=== PATIENT | female | born 2000 | race Caucasian/White ===

== ENCOUNTER 2018-03-27 18:09 | Emergency (ER) | payer BC ==
--- NOTE | 2018-03-27 19:34 | EDPHY ---
HPI/HX/ROS/PE/MDM Narrative: CHIEF COMPLAINT: "I think I might have serotonin syndrome" HISTORY OF PRESENT ILLNESS: This patient is a 17 year old female complaining of fatigue, muscle tightness, and twitching. She has been taking escitalopram 10mg QD for the past month and is concerned as she received warnings about serotonin syndrome when she started this medication. This morning she woke feeling fatigued and was shaking. She had a near syncopal episode while walking home from class today. She endorses weakness and feels uncoordinated. She also had a sensation of general muscle tenseness. No vomiting or diarrhea. She was evaluated at [facility] student clinic earlier and referred to the ED for further evaluation. The patient notes she took Focalin (10mg) on Tuesday recreationally in addition to alcohol and "dabs" that evening as well. She endorses additional marijuana use yesterday. She denies recent international travel. No cold or flu symptoms. No known ill contacts. No fever, chills, chest pain, palpitations, vomiting, diarrhea, urinary complaints, headache. REVIEW OF SYSTEMS: A comprehensive 10 system review of systems is otherwise negative aside from elements mentioned in the history of present illness and medical decision making. PAST MEDICAL HISTORY: TMJ. Occasional hypotension. SOCIAL HISTORY: Student at [employer]. Friend at bedside. VITAL SIGNS: Reviewed by me. Afebrile GENERAL: Well-developed, well-nourished, resting comfortably in no respiratory distress. HEENT: Atraumatic. Eyes: No icterus, no injection. Mouth: moist mucous membranes. No erythema or lesions. Neck: supple with no adenopathy. LUNGS: Clear to auscultation bilaterally, no wheezes, rhonchi or rales. CARDIAC: Regular rate and rhythm, no rubs, murmurs or gallops. ABDOMEN: Soft, nontender, nondistended, bowel sounds normal. BACK: No CVA tenderness. EXTREMITIES: No trauma. No edema. Range of motion is normal throughout. NEURO: Alert and oriented. No clonus, no lead pipe rigidity. Brisk reflexes. Otherwise nonfocal neurologic exam. SKIN: Warm and dry, no rash. PSYCHIATRIC: Normal mentation, no agitation. Portions of this note were transcribed by a medical diagnostic radiographer. I personally performed a history, physical exam, medical decision making, and confirmed accuracy of information the transcribed note. ED Course: 17 y/o female presents with concern for serotonin syndrome. She is well- appearing on exam, She is afebrile. No tachycardia, no tachypnea, she is not hypertensive. No clonus, no lead pipe rigidity, and brisk reflexes on exam. I have very low suspicion for serotonin syndrome a this time. Plan for EKG, labs including CBC, chemistries, BHCG. 12-LEAD EKG: Please see the full report in [facility]. My interpretation: Normal sinus rhythm, rate 60. Laboratory studies largely unremarkable. BHCG negative. 20:25 Reassessed patient. She is currently feeling better. She states she felt tremulous earlier this afternoon, but upon further discussion, believes this may be related to anxiety. She is comfortable with discharge home. The patient has not yet received her full liter of fluid - following completion of this, plan to discharge home in good condition. Follow up and return precautions discussed. She is comfortable with this plan. She remains well-appearing and afebrile, vitals are within normal limits. MDM: Diff dx considered included anxiety, dehydration, polysubstance abuse, electrolyte abnormalities, medication side effect. - Data Points Laboratory Results: Laboratory Results 03/27/18 19:27 03/27/18 19:28 Medications Given: Discontinued Medications Sodium Chloride (Ns) 1,000 mls @ 0 mls/hr IV ONCE ONE; Wide Open PRN Reason: Protocol Stop: 03/27/18 20:27 Last Admin: 03/27/18 20:29 Dose: 1,000 mls General Time Seen by Provider: 03/27/18 19:14 Initial Vital Signs: Initial Vital Signs Temperature (C) 36.8 C 03/27/18 18:12 Heart Rate 79 03/27/18 18:12 Respiratory Rate 19 03/27/18 18:12 Blood Pressure 108/80 03/27/18 18:12 O2 Sat (%) 95 03/27/18 18:12 O2 Delivery Mode Room Air Allergies/Adverse Reactions: No Known Allergies Allergy (Unverified 03/29/18 17:12) Home Medications: Medication Instructions Recorded Escitalopram Oxalate 03/27/18 Departure - Departure Disposition: Home, Routine, Self-Care Clinical Impression: Twitching, Anxiety Condition: Good Instructions: Anxiety (ED) Additional Instructions: Follow up with your primary care provider. Please continue taking medications as directed. Please do not take other individuals medications or mix alcohol and marijuana with your escitalopram Return to the emergency department for fever, chest pain, shortness of breath, fainting, or other worsening of condition. Referrals: [facility],. [Clinic] - As per Instructions Report Scribed for: Nancy Brandon Report Scribed by: Alena Mcclain Date of Report: 03/27/18 Time of Report: 19:36
[2018-03-27 19:53] LABS: PLATELET COUNT 257 10^3/uL (150-400)
[2018-03-27] MEDS ORDERED: NS 1,000 ML IV ONE (20:26)
[2018-03-27 21:53] VITALS: BP 118/69
== END 2018-03-27 21:52 | disposition home or self-care (01) ==
DX: F41.9 Anxiety disorder, unspecified (principal); R25.3 Fasciculation

== ENCOUNTER 2018-03-29 17:11 | Emergency (ER) | payer BC ==
--- NOTE | 2018-03-29 18:05 | EDPHY ---
H & P Time Seen by Provider: 03/29/18 17:54 HPI/ROS: Chief complaint. Bloody stool HPI. Patient is a 17-year-old female with lightheadedness in the shower this afternoon approximately 1 cm. The she knows this is not unusual. The she then subsequently had a brick red stool that she thinks is blood. There was no blood and Dilaudid. She has had occasional abdominal pain the past few weeks. No nausea vomiting. No fever. No history of passing blood in his stool previously. There is no family history of ulcerative colitis or Crohn's disease. ROS 10 systems were reviewed and negative with the exception of the elements mentioned in the history of present illness Past Medical/Surgical History: Past medical history significant for TMJ and mood disorder Social History: Single, nonsmoker, no alcohol Smoking Status: Never smoked Physical Exam: General Appearance: Alert well-developed female mild distress vital signs are stable Eyes: Pupils equal and round no pallor or injection. ENT, Mouth: Mucous membranes are moist. Respiratory: There are no retractions, lungs are clear to auscultation. Cardiovascular: Regular rate and rhythm. Gastrointestinal: Abdomen is soft and nontender, no masses, bowel sounds normal. Rectal exam shows brown stool Neurological: Awake and alert, sensory and motor exams grossly normal. Skin: Warm and dry, no rashes. Musculoskeletal: Neck is supple nontender. Extremities symmetrical, full range of motion. Psychiatric: Patient is oriented X 3, there is no agitation. Constitutional: Initial Vital Signs Temperature (C) 36.8 C 03/29/18 17:13 Heart Rate 76 03/29/18 17:13 Respiratory Rate 18 03/29/18 17:13 Blood Pressure 109/72 03/29/18 17:13 O2 Sat (%) 96 03/29/18 17:13 O2 Delivery Mode Room Air Allergies/Adverse Reactions: No Known Allergies Allergy (Unverified 03/29/18 17:12) Home Medications: Medication Instructions Recorded Escitalopram Oxalate 03/27/18 Medical Decision Making Procedures: IV normal saline ED Course/Re-evaluation: Re-evaluation at 7:40 p.m.. Patient is stable. She and I discussed lab results , treatment plan including criteria for return importance of follow-up and further evaluation. She expresses understanding and agreement Differential Diagnosis: I considered various etiologies of GI bleeding including ulcerative colitis and Crohn's disease. Stool Hemoccult is negative. Hematocrit is stable. I think patient is safe for discharge with GI referral - Data Points Laboratory Results: Laboratory Results 03/29/18 18:35 03/29/18 18:35 03/29/18 03/29/18 03/29/18 18:35 18:35 18:35 WBC 8.08 10^3/uL 10^3/uL (3.80-9.50) RBC 4.17 10^6/uL L 10^6/uL (4.18-5.33) Hgb 13.2 g/dL g/dL (12.6-16.3) Hct 38.4 % % (38.0-47.0) MCV 92.1 fL fL (81.5-99.8) MCH 31.7 pg pg (27.9-34.1) MCHC 34.4 g/dL g/dL (32.4-36.7) RDW 12.1 % % (11.5-15.2) Plt Count 252 10^3/uL 10^3/uL (150-400) MPV 10.5 fL fL (8.7-11.7) Neut % (Auto) 50.4 % % (39.3-74.2) Lymph % (Auto) 42.2 % % (15.0-45.0) Posey % (Auto) 5.7 % % (4.5-13.0) Eos % (Auto) 1.0 % % (0.6-7.6) Baso % (Auto) 0.6 % % (0.3-1.7) Nucleat RBC Rel Count 0.0 % % (0.0-0.2) Absolute Neuts (auto) 4.07 10^3/uL 10^3/uL (1.70-6.50) Absolute Lymphs (auto) 3.41 10^3/uL H 10^3/uL (1.00-3.00) Absolute Monos (auto) 0.46 10^3/uL 10^3/uL (0.30-0.80) Absolute Eos (auto) 0.08 10^3/uL 10^3/uL (0.03-0.40) Absolute Basos (auto) 0.05 10^3/uL 10^3/uL (0.02-0.10) Absolute Nucleated RBC 0.00 10^3/uL 10^3/uL (0-0.01) Immature Gran % 0.1 % % (0.0-1.1) Immature Gran # 0.01 10^3/uL 10^3/uL (0.00-0.10) PT 13.7 SEC SEC (12.0-15.0) INR 1.03 (0.83-1.16) APTT 34.6 SEC SEC (23.0-38.0) Sodium 134 mEq/L L mEq/L (135-145) Potassium 3.6 mEq/L mEq/L (3.3-5.0) Chloride 104 mEq/L mEq/L (97-110) Carbon Dioxide 21 mEq/l L mEq/l (22-31) Anion Gap 9 mEq/L mEq/L (6-14) BUN 13 mg/dL mg/dL (7-23) Creatinine 0.7 mg/dL mg/dL (0.6-1.0) Estimated GFR > 60 Glucose 94 mg/dL mg/dL (70-100) Calcium 9.4 mg/dL mg/dL (8.5-10.4) Stool Occult Bld Scrn 03/29/18 18:20 WBC RBC Hgb Hct MCV MCH MCHC RDW Plt Count MPV Neut % (Auto) Lymph % (Auto) Posey % (Auto) Eos % (Auto) Baso % (Auto) Nucleat RBC Rel Count Absolute Neuts (auto) Absolute Lymphs (auto) Absolute Monos (auto) Absolute Eos (auto) Absolute Basos (auto) Absolute Nucleated RBC Immature Gran % Immature Gran # PT INR APTT Sodium Potassium Chloride Carbon Dioxide Anion Gap BUN Creatinine Estimated GFR Glucose Calcium Stool Occult Bld Scrn NEGATIVE (NEGATIVE) Departure - Departure Disposition: Home, Routine, Self-Care Clinical Impression: Rectal bleeding Condition: Good Instructions: Rectal Bleeding (ED) Additional Instructions: You're workup today is normal. Return for further bleeding or worsening abdominal pain Follow-up with Gastroenterology for further evaluation Referrals: NONE *PRIMARY CARE P,. [Primary Care Provider] - As per Instructions Gianluca Callejas MD [Medical Doctor] - 2-3 days, call for appt. Stand Alone Forms: School Excuse
[2018-03-29 18:55] LABS: PLATELET COUNT 252 10^3/uL (150-400)
[2018-03-29 19:02] LABS: INR 1.03 (0.83-1.16); PROTIME(PATIENT) 13.7 SEC (12.0-15.0)
[2018-03-29 19:38] VITALS: BP 108/67
== END 2018-03-29 19:51 | disposition home or self-care (01) ==
DX: K62.5 Hemorrhage of anus and rectum (principal)

== ENCOUNTER 2018-07-02 21:36 | Emergency (ER) | payer BC ==
[2018-07-02 21:44] VITALS: BP 112/76
[2018-07-02] MEDS ORDERED: CEPHALEXIN 500MG PREPACK#4 BTL TAKEHOME ONE (22:33)
[2018-07-02] MEDS ORDERED: CEPHALEXIN 500 MG CAP PO ONE (22:33)
--- NOTE | 2018-07-02 22:37 | EDPHY ---
H & P Time Seen by Provider: 07/02/18 21:56 HPI/ROS: HPI Probable urinary tract infection. 17-year-old female by private vehicle. She reports that since this afternoon she has had increased frequency with urination, dysuria and some hematuria. She has had urinary tract infections in the past. She denies any back pain or flank pain. No nausea or vomiting. No fever chills. ROS: Constitutional: No fever, no chills. No weakness. Gastrointestinal: No abdominal pain, no vomiting, no diarrhea. Genitourinary: No hematuria. No dysuria or increased frequency with urination. Musculoskeletal: No back pain. No neck pain. No myalgias or arthralgias. Neurological: No headache. Past medical history: TMJ. Previous UTI. Social history: Student University. Nonsmoker. No alcohol. Here by herself. She is from [place]. Physical Exam: General Appearance: Alert, no distress. This patient is responding to questions appropriately and in full sentences. This patient appears well- hydrated and well-nourished. Eyes: Pupils equal and round no pallor or injection. No lid edema, erythema or injection. Gastrointestinal: Abdomen is soft and nontender, no masses, bowel sounds normal. No focal tenderness at McBurney's point. No Dong sign. Neurological: Motor sensory function is grossly intact. Cranial nerves are normal. Gait is normal. Skin: Warm and dry, no rashes. Musculoskeletal: No CVA tenderness on palpation bilaterally. Extremities are symmetrical. All joints range without pain or impingement. Psychiatric: No agitation. No depression. Database: EKG: Imaging: Procedures: Emergency department course: Triage vital signs reviewed and are normal. She is afebrile. Urinalysis significant for urinary tract infection. Medication allergies reviewed. She will be started on Keflex in the emergency department. I will prescribe her this medication for treatment of her urinary tract infection. She feels comfortable going home. Follow-up and return to emergency department precautions reviewed with her. All of her questions were answered. She was discharged from the emergency department in good condition. Differential Diagnosis: The differential diagnosis on this patient includes but is not limited to urinary tract infection. Pyelonephritis unlikely. This represents a partial list of diagnoses considered. These considerations are based on history, physical exam, past history, reassessment and diagnostic testing. Smoking Status: Never smoked Constitutional: Initial Vital Signs Temperature (C) 36.7 C 07/02/18 21:41 Heart Rate 92 07/02/18 21:41 Respiratory Rate 16 07/02/18 21:41 Blood Pressure 112/76 07/02/18 21:41 O2 Sat (%) 96 07/02/18 21:41 O2 Delivery Mode Room Air Allergies/Adverse Reactions: No Known Allergies Allergy (Verified 07/02/18 21:44) Home Medications: Medication Instructions Recorded Escitalopram Oxalate 03/27/18 Cephalexin [Keflex (*)] 500 mg PO Q6 5 Days cap 07/02/18 Nuvaring Vaginal Ring 07/02/18 Medical Decision Making - Data Points Laboratory Results: 07/02/18 07/02/18 22:00 22:00 Urine Color POLLY Urine Appearance CLEAR Urine pH 6.0 (5.0-7.5) Ur Specific [place] 1.008 (1.002-1.030) Urine Protein 2+ H (NEGATIVE) Urine Ketones NEGATIVE (NEGATIVE) Urine Blood 3+ H (NEGATIVE) Urine Nitrate POSITIVE H (NEGATIVE) Urine Bilirubin NEGATIVE (NEGATIVE) Urine Urobilinogen 4.0 EU H EU (0.2-1.0) Ur Leukocyte Esterase 1+ H (NEGATIVE) Urine RBC Pending Urine WBC Pending Ur Epithelial Cells Pending Urine Glucose NEGATIVE (NEGATIVE) Urine Test NEGATIVE Departure - Departure Disposition: Home, Routine, Self-Care Clinical Impression: Urinary tract infection Condition: Good Instructions: Urinary Tract Infection in Women (ED) Additional Instructions: Read and follow provided instructions. Follow-up with your primary care physician in 1-2 days for re-evaluation. Take antibiotic as prescribed through entire course of treatment. Keflex: 500 mg, 1 pill 4 times daily or every 6 hr for 5-6 days. Return to the emergency department for worsening symptoms or other serious concerns. Referrals: NONE *PRIMARY CARE P,. [Primary Care Provider] - As per Instructions Prescriptions: Cephalexin [Keflex (*)] 500 mg PO Q6 5 Days cap
== END 2018-07-02 22:47 | disposition home or self-care (01) ==
DX: N39.0 Urinary tract infection, site not specified (principal)